=== PATIENT | female | born 1985 | race Caucasian/White ===

== ENCOUNTER 2016-08-09 17:37 | Emergency (ER) | payer OTHER ==
[2016-08-09] MEDS ORDERED: NEXPLANON68 MG ID (18:09)
[2016-08-09] MEDS ORDERED: NORCO 325 MG-51 TAB PO (19:36)
[2016-08-09 20:11] VITALS: BP 110/74
== END 2016-08-09 20:05 | disposition home or self-care (01) ==
LOC: ED 17:37 → EDBD 18:14 → ED 18:14
DX: S90.31XA Contusion of right foot, initial encounter (principal); W55.19XA Other contact with horse, initial encounter; Y92.79 Other farm location as the place of occurrence of the external cause
CPT/HCPCS: J1885